=== PATIENT | female | born 1985 | race Caucasian/White ===

== ENCOUNTER 2019-06-15 00:04 | Inpatient (IN) | payer OTHER ==
[~2019-06-15] VITALS: Ht 162.6 cm; Wt 73.0 kg
[2019-06-15] MEDS ORDERED: OXYTOCIN 30U/ 0.9% NaCL 500ML 500 ML IV ONE (01:04)
[2019-06-15] MEDS ORDERED: OXYTOCIN 30U/ 0.9% NaCL 500ML 500 ML IV PRN (01:04)
[2019-06-15] MEDS ORDERED: TERBUTALINE 1 MG/ML, 1ML SQ PRN (01:30)
[2019-06-15] MEDS ORDERED: TERBUTALINE 1 MG/ML, 1ML IVPush PRN (01:30)
[2019-06-15] MEDS ORDERED: CALCIUM CARBONATE 500 MG TAB.CHEW PO PRN (01:30)
[2019-06-15] MEDS ORDERED: METOCLOPRAMIDE 5 MG/ML, 2ML IVPush PRN (01:30)
[2019-06-15] MEDS ORDERED: ONDANSETRON 2MG/ML, 2ML IVPush PRN (01:30)
[2019-06-15] MEDS ORDERED: SODIUM CITRATE/CITRIC ACID 30 ML UDC PO PRN (01:30)
[2019-06-15] MEDS ORDERED: FENTANYL PF 100 MCG/2ML IV PRN (01:30)
[2019-06-15] MEDS ORDERED: FENTANYL PF 100 MCG/2ML IVPush PRN (01:30)
[2019-06-15 01:44] LABS: BASOPHILS # (AUTO) 0.06 x10^3/uL (0-0.1); BASOPHILS % (AUTO) 1 % (0-1); EOSINOPHILS # (AUTO) 0.06 x10^3/uL (0-0.4); EOSINOPHILS % (AUTO) 1 % (1-7); LYMPHOCYTES # (AUTO) 2.51 x10^3/uL (1-3.4); LYMPHOCYTES % (AUTO) 27 % (22-44); MD NO; MEAN CORPUSCULAR HEMOGLOBIN 29.9 pg (27.0-34.8); MEAN CORPUSCULAR HGB CONC 34.5 g/dL (32.4-35.8); MEAN CORPUSCULAR VOLUME 86.6 fL (80-100); MEAN PLATELET VOLUME 9.7 fL (7.4-10.4); MONOCYTES # (AUTO) 0.64 x10^3/uL (0.2-0.8); MONOCYTES % (AUTO) 7 % (2-9); NEUTROPHILS # (AUTO) 5.93 x10^3/uL (1.8-6.8); NEUTROPHILS % (AUTO) 65 % (42-75); PLATELET COUNT 224 x10^3/uL (130-400); RED BLOOD COUNT 4.27 x10^6/uL (3.82-5.3); RED CELL DISTRIBUTION WIDTH 12.7 % (9.6-15.2)
[2019-06-15] MEDS ORDERED: OXYTOCIN 30U/ 0.9% NaCL 500ML 500 ML ONE ×2 (05:30→22:43)
[2019-06-15] MEDS: LACTATED RINGERS 1,000 ML IV SCH ×3 (05:45→17:33)
[2019-06-15] MEDS ORDERED: NEWBORN KIT ONE (07:12)
[2019-06-15] MEDS ORDERED: FENTANYL/BUPIV./NS/PF 250 ML EPIDCONT SCH ×2 (15:54→17:33)
[2019-06-15] MEDS ORDERED: FENTANYL PF 500 MCG, BUPIVACAINE/PF 0.5%, 30ML 62.5 ML in SODIUM CHLORIDE 0.9% 177.5 ML EPIDCONT SCH (16:30)
[2019-06-15] MEDS ORDERED: LACTATED RINGERS 1,000 ML IVBOLUS PRN (18:00)
[2019-06-15] MEDS ORDERED: EPHEDRINE 50 MG/ML, 1ML IVPush PRN (18:00)
[2019-06-15] MEDS ORDERED: NALOXONE 0.4 MG/ML, 1ML IVPush PRN (18:00)
[2019-06-15] MEDS ORDERED: LACTATED RINGERS 1,000 ML IV SCH (18:00)
[2019-06-15 19:37] VITALS: BP 108/66
[2019-06-16] MEDS: D5%-LACTATED RINGERS 1,000 ML IV SCH ×2 (00:06→07:09)
[2019-06-16] MEDS ORDERED: ONDANSETRON 2MG/ML, 2ML ONE (06:24)
[2019-06-16] MEDS ORDERED: AZITHROMYCIN 500 MG in SODIUM CHLORIDE 0.9% 250 ML IV ONE (08:00)
[2019-06-16] MEDS ORDERED: ACETAMINOPHEN 325 MG TABLET ONE (12:30)
[2019-06-16] MEDS ORDERED: ACETAMINOPHEN 325 MG TABLET PO PRN (12:30)
[2019-06-16] MEDS ORDERED: GENTAMICIN PER PHARMACY MC PRN (12:30)
[2019-06-16] MEDS ORDERED: AMPICILLIN 2 GM in SODIUM CHLORIDE 0.9% 100 ML IV SCH (12:30)
[2019-06-16] MEDS: LACTATED RINGERS 1,000 ML IV SCH (12:32)
[2019-06-16] MEDS ORDERED: GENTAMICIN 120 MG in SODIUM CHLORIDE 0.9% 50 ML IV SCH (13:30)
[2019-06-16] MEDS ORDERED: PHARMACOKINETIC MONITORING MC PRN (13:30)
[2019-06-16] MEDS ORDERED: PHARMACOKINETIC CONSULTATION MC ONE (13:30)
[2019-06-16] MEDS: OXYTOCIN 30U/ 0.9% NaCL 500ML 500 ML IV SCH ×7 (15:15→22:35)
[2019-06-16] MEDS ORDERED: OXYTOCIN 30U/ 0.9% NaCL 500ML 500 ML ONE (15:20)
[2019-06-16] MEDS ORDERED: SIMETHICONE 80 MG CHEW TAB PO PRN (15:30)
[2019-06-16] MEDS ORDERED: MISOPROSTOL 200 MCG TABLET PR PRN (15:30)
[2019-06-16] MEDS ORDERED: OXYcodone IR 5MG TABLET PO PRN ×2 (15:30)
[2019-06-16 17:30] VITALS: BP 108/72
[2019-06-16] MEDS: AMPICILLIN 2 GM in SODIUM CHLORIDE 0.9% 100 ML IV SCH (18:06)
[2019-06-16 20:00] VITALS: BP 90/55
[2019-06-16] MEDS: IBUPROFEN 600 MG TABLET PO PRN (21:24)
[2019-06-16] MEDS: DOCUSATE 100 MG CAPSULE PO PRN (21:24)
[2019-06-16] MEDS: GENTAMICIN 120 MG in SODIUM CHLORIDE 0.9% 50 ML IV SCH (21:27)
[2019-06-16 22:13] LABS: MEAN CORPUSCULAR HEMOGLOBIN 29.7 pg (27.0-34.8); MEAN CORPUSCULAR HGB CONC 33.6 g/dL (32.4-35.8); MEAN CORPUSCULAR VOLUME 88.3 fL (80-100); MEAN PLATELET VOLUME 9.5 fL (7.4-10.4); PLATELET COUNT 182 x10^3/uL (130-400); RED BLOOD COUNT 3.78 x10^6/uL (3.82-5.3); RED CELL DISTRIBUTION WIDTH 13.4 % (9.6-15.2)
[2019-06-16 23:26] LABS: MD YES
[2019-06-16 23:28] LABS: <PLATELET ESTIMATE> ADEQUATE; <PLT MORPHOLOGY> NORMAL PLT MORPH; <RBC MORPHOLOGY> NORMAL; BAND#(MANUAL) 2.09 x10^3/uL; BANDS%(MANUAL) 7 % (0-7); LYMPH#(MANUAL) 3.28 x10^3/uL (1-3.4); LYMPHS% (MANUAL) 11 % (22-44); MONOS#(MANUAL) 1.19 x10^3/uL (0.3-2.7); MONOS% (MANUAL) 4 % (2-9); SEG#(MANUAL) 23.24 x10^3/uL (1.8-6.8); SEGS% (MANUAL) 78 % (42-75)
[2019-06-17 00:30] VITALS: BP 104/60
[2019-06-17] MEDS: AMPICILLIN 2 GM in SODIUM CHLORIDE 0.9% 100 ML IV SCH ×2 (00:35→06:30)
[2019-06-17] MEDS: OXYTOCIN 30U/ 0.9% NaCL 500ML 500 ML IV SCH ×2 (01:25→21:25)
[2019-06-17 04:00] VITALS: BP 101/55
[2019-06-17] MEDS: GENTAMICIN 120 MG in SODIUM CHLORIDE 0.9% 50 ML IV SCH (05:34)
[2019-06-17 06:06] LABS: CREATININE 0.84 mg/dL (0.55-1.02)
[2019-06-17 08:00] VITALS: BP 110/72
[2019-06-17] MEDS: PRENATAL VIT/IRON/FA 1 EACH TABLET PO SCH (09:00)
[2019-06-17] MEDS: DOCUSATE 100 MG CAPSULE PO PRN ×2 (09:30→21:02)
[2019-06-17] MEDS: IBUPROFEN 600 MG TABLET PO PRN ×2 (10:00→16:00)
[2019-06-17] MEDS ORDERED: PLEASE ENTER WEIGHT MC SCH (11:30)
[2019-06-17 12:30] VITALS: BP 104/73
[2019-06-17 20:50] VITALS: BP 110/74
[2019-06-18] MEDS: IBUPROFEN 600 MG TABLET PO PRN ×2 (03:09→09:07)
[2019-06-18] MEDS: OXYTOCIN 30U/ 0.9% NaCL 500ML 500 ML IV SCH (07:25)
[2019-06-18 08:30] VITALS: BP 117/77
[2019-06-18] MEDS: DOCUSATE 100 MG CAPSULE PO PRN (09:07)
[2019-06-18] MEDS: PRENATAL VIT/IRON/FA 1 EACH TABLET PO SCH (09:07)
[2019-06-18] MEDS ORDERED: IBUP-1222 PO (11:11)
== END 2019-06-18 14:56 | disposition home or self-care (01) | DRG 807 ==
LOC: LDOP 00:04 → LDIP 01:08 → 2NW 06-16 17:03
PROVIDERS: ADMIT Obstetrics & Gynecology; ATTEND Obstetrics & Gynecology
PROC: 10H07YZ Insertion of Other Device into Products of Conception, Via Natural or Artificial Opening (ICD-10-PCS; 2019-06-15)
PROC: 10E0XZZ Delivery of Products of Conception, External Approach (ICD-10-PCS; principal; 2019-06-16)
PROC: 0HQ9XZZ Repair Perineum Skin, External Approach (ICD-10-PCS; 2019-06-16)
PROC: 3E0R3BZ Introduction of Anesthetic Agent into Spinal Canal, Percutaneous Approach (ICD-10-PCS; 2019-06-16)
PROC: 00HU33Z Insertion of Infusion Device into Spinal Canal, Percutaneous Approach (ICD-10-PCS; 2019-06-16)
DX: O48.0 Post-term pregnancy (principal); Z37.0 Single live birth; O42.92 Full-term premature rupture of membranes, unspecified as to length of time between rupture and onset of labor; O69.1XX0 Labor and delivery complicated by cord around neck, with compression, not applicable or unspecified; O76 Abnormality in fetal heart rate and rhythm complicating labor and delivery; O77.0 Labor and delivery complicated by meconium in amniotic fluid; Z3A.40 40 weeks gestation of pregnancy; O70.0 First degree perineal laceration during delivery
CPT/HCPCS: 36415; J7121; 82565; 82803; 84520; 85025; 86592; 86850; 86900; 87070; 87075; 87077; 87186; 87205; G0378; J0290; J2405; J1580; J2590; J3010; J7120